=== PATIENT | female | born 1990 | race Caucasian/White ===

== ENCOUNTER 2017-04-14 18:33 | Emergency (ER) | payer SELFPAY ==
[~2017-04-14] VITALS: Ht 165.1 cm; Wt 68.2 kg
[~2017-04-14 18:33] MED LIST: FLINTSTONES W/I1 CTB PO; PRENATAL VITAMI1 TA5 PO
[2017-04-14 18:36] VITALS: BP 147/92; PULSE 62; TEMP 98.1
[2017-04-14] MEDS ORDERED: SPRINTEC 35 MCG1 TAB PO (18:43)
[2017-04-14] MEDS ORDERED: ZOLOFT 50MG50 MG PO (18:43)
== END 2017-04-14 19:35 | disposition home or self-care (01) ==
LOC: COL.ER 18:33
DX: S09.90XA Unspecified injury of head, initial encounter (principal); S01.81XA Laceration without foreign body of other part of head, initial encounter; W22.03XA Walked into furniture, initial encounter; Y92.003 Bedroom of unspecified non-institutional (private) residence as the place of occurrence of the external cause; S00.83XA Contusion of other part of head, initial encounter; F32.9 Major depressive disorder, single episode, unspecified